=== PATIENT | female | born 1930 | race African-American/Black ===

== ENCOUNTER 2017-11-11 16:01 | Emergency (ER) | payer MEDICAID, OTHER ==
[~2017-11-11] VITALS: Ht 165.1 cm; Wt 81.6 kg
[~2017-11-11 16:01] MED LIST: ACETAMINOPHEN650 M2 ORAL; AMLODIPINE BESY10 MG PO; APRESOLINE50 MG PO; BRIMONIDINE TART5 ML RIGHT EYE; CATAPRES-TTS 21 EACH TD; HUMULIN 70100 UNIT/2 SUBQ; ISOSORBIDE MONO60 M1 PO; LUMIGAN2.5 ML BOTH EYES; PRAVASTATIN SOD80 MG PO; TRUSOPT10 ML LEFT EYE
[2017-11-11 16:13] VITALS: BP 172/80
--- NOTE | 2017-11-11 16:40 | Emergency Room Report ---
History of Present Illness General Chief Complaint: Back Pain-No Injury Source: Patient Present Illness HPI 87-year-old female presents with right lower back pain radiating to front of abdomen, asoc wiht with intermittent numbness and pain to right lower leg since last 2-3 days. Atraumatic. Denies chest pain, shortness of breath, headache, dizziness, change in vision Also endorses "my belly is ray lately." The patient is status post distant appendectomy States she saw a investigator cash shortage last week who told her "I have a spot in the kidney." However patient not sure if he may kidney stone. Patient endorses recent visit to [facility] where "take a lot of tests". However patient does not have any that information right now. denies known history of aortic dissection, abdominal aortic aneurysm Allergies: Coded Allergies: HYDROMORPHONE HCL (Unverified Allergy, Severe, Anaphylaxis, 03/16/13) Mushroom (Unverified Allergy, Severe, Anaphylaxis, 03/16/13) PENICILLINS (Unverified Allergy, Severe, Anaphylaxis, 03/16/13) AMOXICILLIN (Verified Allergy, Mild, 04/28/10) CODEINE (Verified Allergy, Mild, 04/28/10) MORPHINE (Verified Allergy, Mild, 04/28/10) Uncoded Allergies: SEAFOOD (Allergy, Severe, Anaphylaxis, 03/16/13) Patient History Past Medical History: see triage record, old chart reviewed, DM, HTN, CAD Past Surgical History: none Pertinent Family History: none Social History: Denies: smoking, alcohol use, drug use Now: No Immunizations: UTD Reviewed Nursing Documentation: PMH: Agreed, PSxH: Agreed Nursing Documentation-PM Hx Cardiac Problems: Yes - pacemaker Hx Hypertension: Yes Hx Pacemaker: Yes - left chest Hx Asthma: Yes Hx COPD: Yes Hx Diabetes: Yes Hx Cancer: No Hx Gastrointestinal Problems: No Hx Neurological Problems: Yes Hx Cerebrovascular Accident: Yes - 2010 Hx Transient Ischemic Attacks: Yes Hx Dementia: No Hx Alzheimer's Disease: No Hx Parkinson's Disease: No Hx Meningitis: No Hx Encephalitis: No Hx Seizures: No Hx Epilepsy: No Hx Multiple Sclerosis: No Hx Cerebral Palsy: No Hx Amyotrophic Lat Sclerosis: No Hx Guillian-[place] Syndrome: No Hx Paralysis: No Hx Peripheral Neuropathy: No Hx Spinal Cord Injury: No Hx Head Trauma: Yes - hematoma Hx Traumatic Brain Injury: No Hx Memory Loss: No Hx Concentration Difficulty: No Hx Speech Problem: No Hx Tremors: Yes Hx Vertigo: Yes Hx Dizziness: Yes Hx Syncope: Yes - fall Hx Headaches: Yes Hx Aphasia: No Hx Dysphasia: No Hx Numbness: No Hx Weakness: Yes Hx Fatigue: Yes Review of Systems All Other Systems: negative except mentioned in HPI Physical Exam Vital Signs Date Time Temp Pulse Resp B/P (MAP) Pulse Ox O2 Delivery O2 Flow Rate FiO2 11/11/17 16:03 98.1 82 16 186/82 98 Sp02 EP Interpretation: reviewed, normal General Appearance: normal inspection, well appearing, no apparent distress, alert, GCS 15, non-toxic, obese Head: normocephalic, atraumatic Eyes: bilateral eye PERRL, bilateral eye EOMI ENT: normal ENT inspection, hearing grossly normal, normal pharynx, no angioedema, normal voice, TMs + canals normal, uvula midline, moist mucus membranes Neck: normal inspection, full range of motion, supple, thyroid normal, no meningismus, no bony tend Respiratory: normal inspection, lungs clear, normal breath sounds, no rhonchi, no respiratory distress, no retraction, no accessory muscle use, no wheezing, speaking full sentences Cardiovascular #1: regular rate, rhythm, no edema, no JVD, normal capillary refill Gastrointestinal: normal inspection, normal bowel sounds, non tender, soft, no mass, no peritonitis, non-distended, no guarding, no hernia, no pulsatile mass Genitourinary: no CVA tenderness Musculoskeletal: normal inspection, back normal, normal range of motion, no calf tenderness, pelvis stable, Carlin's Sign negative, other - Moderate tenderness palpation to right paravertebral area of back/ Negative straight leg raise bilaterally. 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, motor strength/tone normal, cerebellar normal, normal gait, speech normal Psychiatric: normal inspection, judgement/insight normal, mood/affect normal, no suicidal/homicidal ideation, no delusions Skin: normal inspection, normal color, no rash Lymphatic: normal inspection, no adenopathy Medical Decision Making Diagnostic Impression: Primary Impression: Back pain Qualified Codes: M54.5 - Low back pain ER Course [id number] with back pain radiating to abdomen with parathesias down leg VSS, Afebrile Given vasculopathic history , "abdomen fullness", concern for AAA or dissection CT - No acute findings - dissection nor AAA - or other to explain symptoms - spot on kidney referenced by patient like cyst seen on CT Labs unremarkable for acute process either No leuks. H&H stable. No metabolic abnormalities Feels better with tylenol Patient reassured was given copy of CT, labs Has PMD followuup in 2 weeks ER course: Patient has remained stable during ED stay. Disposition: Patient is to be discharged to home. Patient is instructed to follow up with their primary care doctor within 5 days. Strict return precautions discussed with patient such as fever, chills, worsening/severe pain, nausea, vomiting, which may indicate severe illness. Patient verbalizes understanding and agrees with plan. Please note that this Emergency Department Report was dictated using Lingv[employer] controller technology software, occasionally this can lead to erroneous entry secondary to interpretation by the dictation equipment EKG Diagnostic Results Rate: other - atrial paced Rhythm: other - atrial paced ST Segments: no acute changes ASA given to the pt in ED: No Rhythm Strip Diag. Results EP Interpretation: yes Rate: 70 Rhythm: NSR, no PVC's, no ectopy Last Vital Signs Date Time Temp Pulse Resp B/P (MAP) Pulse Ox O2 Delivery O2 Flow Rate FiO2 11/11/17 16:03 98.1 82 16 186/82 98 Status: improved Disposition: HOME, SELF-CARE LOLA PARDO M.D. Nov 11, 2017 16:40
[2017-11-11 17:40] VITALS: BP 159/64
[2017-11-11 18:00] LABS: BASOPHILS % (AUTO) 1.3 % (0.0-2.0); EOSINOPHILS % (AUTO) 3.4 % (0.0-3.0); HEMATOCRIT 37.9 % (37.0-47.0); HEMOGLOBIN 12.6 G/DL (12.0-16.0); LYMPHOCYTES % (AUTO) 15.3 % (20.0-45.0); MEAN CORPUSCULAR VOLUME 88 FL (80-99); NEUTROPHILS % (AUTO) 71.9 % (45.0-75.0); PLATELET COUNT 261 K/UL (150-450); RED BLOOD COUNT 4.31 M/UL (4.20-5.40)
[2017-11-11 18:15] LABS: ANION GAP 11 mmol/L (5-15); BLOOD UREA NITROGEN 26 mg/dL (7-18); CALCIUM 9.5 MG/DL (8.5-10.1); CARBON DIOXIDE 25 MMOL/L (21-32); CHLORIDE 103 MMOL/L (98-107); CREATININE 1.8 MG/DL (0.55-1.30); POTASSIUM 3.9 MMOL/L (3.5-5.1); SODIUM 139 MMOL/L (136-145)
[2017-11-11 18:29] LABS: ALANINE AMINOTRANSFERASE 12 U/L (12-78); ALBUMIN/GLOBULIN RATIO 0.9 (1.0-2.7); ALKALINE PHOSPHATASE 51 U/L (46-116); ASPARTATE AMINO TRANSFERASE 16 U/L (15-37); BILIRUBIN,TOTAL 0.4 MG/DL (0.2-1.0); CKMB < 0.5 NG/ML (0.0-3.6); CREATINE KINASE 38 U/L (26-308)
[2017-11-11] MEDS ORDERED: Midazolam 2mg/2ml Inj IVP ONE (19:15)
[2017-11-11 21:47] VITALS: BP 159/64
--- NOTE | 2017-11-12 17:56 | Cardiology Report ---
APPROVED REPORT EKG Measurement Heart [id number] Atrial pacing Abnormal ECG
--- NOTE | 2017-11-12 18:15 | Diagnostic Imaging Report ---
Indication: Back pain Technique: CT of the chest, abdomen and pelvis was obtained utilizing automated exposure control without intravenous or oral contrast. Axial, sagittal and coronal reformats.. CT dose: Total DLP 1533 mGycm; CTDI vol 23.6 mGy Comparison: None Findings: CT CHEST: There is a left-sided dual lead pacemaker with lead tips in the right atrium and ventricle. Heart size within upper limits for normal. No pericardial effusion. There are aortic valvular and coronary arterial calcifications. There is no pathologically enlarged hilar or mediastinal adenopathy. Imaged portions of the thyroid are grossly unremarkable. Thoracic aorta is mildly calcified but appears normal in caliber. Dependent atelectatic changes are noted bilaterally. There is no focal airspace consolidation, pleural effusion or pneumothorax. There is a 4 mm nodule within the left lower lobe (series 4 image #78). There are multilevel degenerative changes of the thoracic spine. No acute osseous abnormality is seen. Coarse calcification noted in the left breast. CT ABDOMEN/PELVIS: Patient is status post cholecystectomy. There is no appreciable biliary ductal dilatation. Noncontrast evaluation of the liver and spleen are grossly unremarkable. There is slight thickening of the bilateral adrenal glands without discrete nodule.. There is fatty atrophy of the pancreas, likely age related. Kidneys are slightly atrophic. There is a 2 cm simple cyst in the lower pole of the left kidney. No urinary tract stones or hydronephrosis bilaterally. Bladder is unremarkable. Patient is status post hysterectomy. There is a tiny fat-containing umbilical hernia. There is no free intraperitoneal air. No evidence of bowel obstruction. There is diverticulosis without evidence of acute diverticulitis. No focal perienteric inflammatory changes appreciated. Abdominal aorta is moderately calcified but normal in caliber. Iliac arteries are normal in caliber. There is no bulky lymphadenopathy. There are multilevel degenerative changes of the spine. There is minimal anterolisthesis of L4 on L5 thought to be degenerative in etiology. No acute osseous abnormality is seen. IMPRESSION: Limited evaluation without intravenous and oral contrast. Within these limitations the following observations are made: * Mild to moderate atherosclerotic disease of a normal caliber aorta. Please note that lack of IV contrast precludes evaluation for acute aortic pathology such as aortic dissection. * Diverticulosis without evidence of acute diverticulitis. * Coronary artery disease. * Status post cholecystectomy and hysterectomy. * 4 mm left lower lobe lung nodule. No routine imaging follow-up recommended per 2017 Fleischner Society recommendations. * Multilevel degenerative change of the spine. Additional findings as above. This corresponds with the statrad preliminary report. The CT scanner at [facility] is accredited by the [employer] and the scans are performed using protocols designed to limit radiation exposure to as low as reasonably achievable to attain images of sufficient resolution adequate for diagnostic evaluation.
== END 2017-11-12 00:17 | disposition home or self-care (01) ==
LOC: EDBD 16:01 → EDUNIT# 16:01 → EMR 17:52
DX: M54.5 Low back pain (principal); J44.9 Chronic obstructive pulmonary disease, unspecified; I10 Essential (primary) hypertension; E11.9 Type 2 diabetes mellitus without complications; Z86.73 Personal history of transient ischemic attack (TIA), and cerebral infarction without residual deficits; Z95.0 Presence of cardiac pacemaker; Z88.0 Allergy status to penicillin; Z88.5 Allergy status to narcotic agent; Z91.013 Allergy to seafood; Z91.018 Allergy to other foods
CPT/HCPCS: 36415; 71275; 74174; 80053; 80307; 82550; 82553; 84484; 85025; 93005; 96374; 99284; J2250; Q9967

== ENCOUNTER 2018-03-27 17:04 | Emergency (ER) | payer OTHER ==
[~2018-03-27] VITALS: Ht 157.5 cm; Wt 99.8 kg
[2018-03-27] MEDS ORDERED: MONTELUKAST SOD10 MG ORAL (17:13)
[2018-03-27] MEDS ORDERED: BIMATOPROST2.5 ML OP (17:20)
[2018-03-27] MEDS ORDERED: ALBUTEROL2.5 MG/3 M INH (17:20)
[2018-03-27] MEDS ORDERED: ASPIR 8181 MG ORAL (17:20)
[2018-03-27] MEDS ORDERED: IRBESARTAN-HCT1 EAC2 PO (17:20)
[2018-03-27] MEDS ORDERED: HUMALOG MI100 UNIT/6 SQ ×2 (17:20)
[2018-03-27 17:25] VITALS: BP 136/72
--- NOTE | 2018-03-27 17:55 | Emergency Room Report ---
History of Present Illness General Chief Complaint: Skin Rash/Abscess Source: Patient Present Illness HPI Patient present with complaints of diffuse rash Reports that the rash started several days ago however now has become more tender and painful Itching Patient has multiple allergies however does not recall being in contact with anything that she was allergic to She reports that her Singulair was changed last week to a generic form Otherwise denies any change medications Denies any chest pain or short of breath denies any nausea vomiting The rash is diffuse involving the upper chest back and lower extremities Allergies: Coded Allergies: HYDROMORPHONE HCL (Unverified Allergy, Severe, Anaphylaxis, 03/16/13) Mushroom (Unverified Allergy, Severe, Anaphylaxis, 03/16/13) PENICILLINS (Unverified Allergy, Severe, Anaphylaxis, 03/16/13) AMOXICILLIN (Verified Allergy, Mild, 04/28/10) CODEINE (Verified Allergy, Mild, 04/28/10) MORPHINE (Verified Allergy, Mild, 04/28/10) Uncoded Allergies: SEAFOOD (Allergy, Severe, Anaphylaxis, 03/16/13) Patient History Past Medical History: see triage record Pertinent Family History: none Reviewed Nursing Documentation: PMH: Agreed; PSxH: Agreed Nursing Documentation-PMH Hx Cardiac Problems: Yes - pacemaker Hx Hypertension: Yes Hx Pacemaker: Yes - left chest Hx Asthma: Yes Hx COPD: Yes Hx Diabetes: Yes Hx Cancer: No Hx Gastrointestinal Problems: No Hx Neurological Problems: Yes Hx Cerebrovascular Accident: Yes - 2010 Hx Transient Ischemic Attacks: Yes Hx Dementia: No Hx Alzheimer's Disease: No Hx Parkinson's Disease: No Hx Meningitis: No Hx Encephalitis: No Hx Seizures: No Hx Epilepsy: No Hx Multiple Sclerosis: No Hx Cerebral Palsy: No Hx Amyotrophic Lat Sclerosis: No Hx Guillian-[place] Syndrome: No Hx Paralysis: No Hx Peripheral Neuropathy: No Hx Spinal Cord Injury: No Hx Head Trauma: Yes - hematoma Hx Traumatic Brain Injury: No Hx Memory Loss: No Hx Concentration Difficulty: No Hx Speech Problem: No Hx Tremors: Yes Hx Vertigo: Yes Hx Dizziness: Yes Hx Syncope: Yes - fall Hx Headaches: Yes Hx Aphasia: No Hx Dysphasia: No Hx Numbness: No Hx Weakness: Yes Hx Fatigue: Yes Review of Systems All Other Systems: negative except mentioned in HPI Physical Exam Vital Signs Date Time Temp Pulse Resp B/P (MAP) Pulse Ox O2 Delivery O2 Flow Rate FiO2 03/27/18 17:08 98.6 85 19 148/70 95 Room Air 98.6 Sp02 EP Interpretation: reviewed, normal General Appearance: well appearing, no apparent distress Head: normocephalic, atraumatic Eyes: bilateral eye PERRL, bilateral eye EOMI ENT: hearing grossly normal, normal pharynx, TMs + canals normal, uvula midline Neck: full range of motion, supple, no meningismus, no bony tend Respiratory: lungs clear, normal breath sounds, no rhonchi, no respiratory distress, no retraction, no accessory muscle use Cardiovascular #1: normal peripheral pulses, regular rate, rhythm, no edema, no gallop, no JVD, no murmur Gastrointestinal: normal bowel sounds, non tender, soft, no mass, no organomegaly, non-distended, no guarding, no hernia, no pulsatile mass, no rebound Genitourinary: no CVA tenderness Musculoskeletal: normal inspection Neurologic: oriented x3, responsive, 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, motor strength/ tone normal, sensory intact Psychiatric: mood/affect normal Skin: other - Diffuse urticarial rash involving the upper torso lower extremity and upper extremity, no obvious blister formation, there is no dermatomal pattern no obvious petechiae, Lymphatic: normal inspection, no adenopathy Medical Decision Making Diagnostic Impression: Primary Impression: Rash and other nonspecific skin eruption ER Course Given the patient's presentation clinical history and exam patient does appear to have extensive allergic reaction Patient was treated symptomatically on repeat evaluation feels improved also clinical evaluation shows improved rash given the extent of the rash given the Benadryl this required and the patient's age given the lack of knowledge of the specific etiology of the rash I recommended inpatient observation overnight However patient does not want to stay in the hospital Her daughter is here as well and reports that she will return with any concerns or changes Labs Test 03/27/18 18:25 03/27/18 19:40 White Blood Count 9.1 K/UL (4.8-10.8) Red Blood Count 4.10 M/UL (4.20-5.40) Hemoglobin 11.7 G/DL (12.0-16.0) Hematocrit 35.6 % (37.0-47.0) Mean Corpuscular Volume 87 FL (80-99) Mean Corpuscular Hemoglobin 28.5 PG (27.0-31.0) Mean Corpuscular Hemoglobin Concent 32.8 G/DL (32.0-36.0) Red Cell Distribution Width 12.9 % (11.6-14.8) Platelet Count 165 K/UL (150-450) Mean Platelet Volume 7.5 FL (6.5-10.1) Neutrophils (%) (Auto) 72.2 % (45.0-75.0) Lymphocytes (%) (Auto) 15.9 % (20.0-45.0) Monocytes (%) (Auto) 3.4 % (1.0-10.0) Eosinophils (%) (Auto) 7.6 % (0.0-3.0) Basophils (%) (Auto) 0.9 % (0.0-2.0) Sodium Level 139 MMOL/L (136-145) Potassium Level 3.9 MMOL/L (3.5-5.1) Chloride Level 103 MMOL/L (98-107) Carbon Dioxide Level 23 MMOL/L (21-32) Anion Gap 13 mmol/L (5-15) Blood Urea Nitrogen 34 mg/dL (7-18) Creatinine 2.0 MG/DL (0.55-1.30) Estimat Glomerular Filtration Rate mL/min (>60) Glucose Level 117 MG/DL (74-106) Calcium Level 8.9 MG/DL (8.5-10.1) Total Bilirubin 0.4 MG/DL (0.2-1.0) Aspartate Amino Transf (AST/SGOT) 17 U/L (15-37) Alanine Aminotransferase (ALT/SGPT) 18 U/L (12-78) Alkaline Phosphatase 44 U/L (46-116) Total Creatine Kinase 46 U/L (26-308) Creatine Kinase MB 0.5 NG/ML (0.0-3.6) Creatine Kinase MB Relative Index 1.0 Troponin I 0.051 ng/mL (0.000-0.056) Total Protein 7.7 G/DL (6.4-8.2) Albumin 3.6 G/DL (3.4-5.0) Globulin 4.1 g/dL Albumin/Globulin Ratio 0.9 (1.0-2.7) Prothrombin Time 9.4 SEC (9.30-11.50) Prothromb Time International Ratio 0.9 (0.9-1.1) Activated Partial Thromboplast Time 19 SEC (23-33) Rhythm Strip Diag. Results EP Interpretation: yes Rate: 66 Rhythm: NSR, no PVC's, no ectopy Chest X-Ray Diagnostic Results Chest X-Ray Diagnostic Results : Chest X-Ray Ordered: Yes # of Views/Limited/Complete: 1 View Indication: Chest Pain EP Interpretation: Yes Interpretation: no consolidation, no effusion, no pneumothorax Impression: No acute disease Electronically Signed by: Gerald Dominguez DO Last Vital Signs Date Time Temp Pulse Resp B/P (MAP) Pulse Ox O2 Delivery O2 Flow Rate FiO2 03/27/18 17:25 98.6 76 19 136/72 97 Room Air 98.6 Status: improved Disposition: HOME, SELF-CARE Condition: Improved Scripts Famotidine (PEPCID AC) 20 Mg Tablet 20 MG PO DAILY, #20 TAB Prov: Gerald Dominguez DO 03/27/18 Diphenhydramine HCl (Benadryl) 25 Mg Capsule 25 MG PO Q8HR, #30 CAP Prov: Gerald Dominguez DO 03/27/18 Prednisone* (PREDNISONE*) 20 Mg Tablet 20 MG ORAL BID, #10 TAB Prov: Gerald Dominguez DO 03/27/18 Referrals: [facility],REFERRING (PCP) Additional Instructions: Patient is provided with the discharge instructions notified to follow up with primary doctor in the next 2-3 days otherwise return to the er with any worsening symptoms. Please note that this report is being documented using DRAGON technology. This can lead to erroneous entry secondary to incorrect interpretation by the dictating instrument. Gerald Dominguez DO Mar 27, 2018 17:55
[2018-03-27] MEDS ORDERED: DiphenhydrAMINE 50mg/ml Inj IVP ONE ×2 (18:00→19:45)
[2018-03-27] MEDS ORDERED: Solu-MEDROL 125mg Inj IVP ONE (18:00)
[2018-03-27 18:54] LABS: BASOPHILS % (AUTO) 0.9 % (0.0-2.0); EOSINOPHILS % (AUTO) 7.6 % (0.0-3.0); HEMATOCRIT 35.6 % (37.0-47.0); HEMOGLOBIN 11.7 G/DL (12.0-16.0); LYMPHOCYTES % (AUTO) 15.9 % (20.0-45.0); MEAN CORPUSCULAR VOLUME 87 FL (80-99); MONOCYTES % (AUTO) 3.4 % (1.0-10.0); NEUTROPHILS % (AUTO) 72.2 % (45.0-75.0); PLATELET COUNT 165 K/UL (150-450); RED CELL DISTRIBUTION WIDTH 12.9 % (11.6-14.8); WHITE BLOOD COUNT 9.1 K/UL (4.8-10.8)
--- NOTE | 2018-03-27 18:56 | Diagnostic Imaging Report ---
EXAM: XR Chest, 1 View CLINICAL HISTORY: Chest pain TECHNIQUE: Frontal view of the chest. COMPARISON: Chest x-ray dated 03/16/16. FINDINGS: Lungs: Mild pulmonary vascular congestion. Subsegmental atelectasis in the left lung base. The lungs otherwise appear clear. Pleural space: Unremarkable. No pneumothorax. Heart: Unremarkable. No cardiomegaly. Mediastinum: Unremarkable. Bones/joints: Unremarkable. Tubes, lines and devices: Left-sided cardiac pacer with lead tips in the right atrium and right ventricle. EKG leads overlie the thorax. IMPRESSION: 1. Mild pulmonary vascular congestion. 2. Subsegmental atelectasis in the left lung base.
[2018-03-27 19:04] LABS: ANION GAP 13 mmol/L (5-15); BLOOD UREA NITROGEN 34 mg/dL (7-18); CALCIUM 8.9 MG/DL (8.5-10.1); CARBON DIOXIDE 23 MMOL/L (21-32); CHLORIDE 103 MMOL/L (98-107); POTASSIUM 3.9 MMOL/L (3.5-5.1); SODIUM 139 MMOL/L (136-145)
[2018-03-27 19:17] LABS: ALANINE AMINOTRANSFERASE 18 U/L (12-78); ALBUMIN 3.6 G/DL (3.4-5.0); ALBUMIN/GLOBULIN RATIO 0.9 (1.0-2.7); ALKALINE PHOSPHATASE 44 U/L (46-116); ASPARTATE AMINO TRANSFERASE 17 U/L (15-37); BILIRUBIN,TOTAL 0.4 MG/DL (0.2-1.0); CKMB 0.5 NG/ML (0.0-3.6); CREATINE KINASE 46 U/L (26-308)
[2018-03-27 19:25] VITALS: BP 140/72
[2018-03-27] MEDS ORDERED: PREDNISONE20 MG ORAL (19:52)
[2018-03-27] MEDS ORDERED: PEPCID AC20 M2 PO (19:52)
[2018-03-27] MEDS ORDERED: BENADRYL25 M3 PO (19:52)
[2018-03-27 19:57] LABS: INR 0.9 (0.9-1.1)
[2018-03-27 20:19] VITALS: BP 154/54
[2018-03-27 20:21] VITALS: BP 154/54
--- NOTE | 2018-03-31 15:25 | Cardiology Report ---
APPROVED REPORT EKG Measurement Heart [id number] Abnormal ECG Atrial Pacemaker
== END 2018-03-27 20:33 | disposition home or self-care (01) ==
LOC: EMR 17:23 → CANBEDREQ 19:54 → EMR 20:33
DX: R21 Rash and other nonspecific skin eruption (principal); Z88.0 Allergy status to penicillin; Z88.5 Allergy status to narcotic agent; Z91.013 Allergy to seafood; I10 Essential (primary) hypertension; Z95.0 Presence of cardiac pacemaker; J44.9 Chronic obstructive pulmonary disease, unspecified; Z86.73 Personal history of transient ischemic attack (TIA), and cerebral infarction without residual deficits
CPT/HCPCS: 36415; 71045; 80053; 82550; 82553; 84484; 85025; 85610; 85730; 87040; 93005; 96374; 96375; 99284; J1200; J2930; S0028

== ENCOUNTER 2018-04-08 11:36 | Emergency (ER) | payer MEDICARE ==
[~2018-04-08] VITALS: Ht 157.5 cm; Wt 99.8 kg
[~2018-04-08 11:36] MED LIST changes: +ALBUTEROL2.5 MG/3 M INH; +ASPIR 8181 MG ORAL; +BENADRYL25 M3 PO; +BIMATOPROST2.5 ML OP; +HUMALOG MI100 UNIT/6 SQ; +IRBESARTAN-HCT1 EAC2 PO; +MONTELUKAST SOD10 MG ORAL; +PEPCID AC20 M2 PO; +PREDNISONE20 MG ORAL
[2018-04-08 12:00] VITALS: BP 159/63
[2018-04-08] MEDS ORDERED: Solu-MEDROL 125mg Inj IVP ONE (12:30)
--- NOTE | 2018-04-08 12:34 | Emergency Room Report ---
History of Present Illness General Chief Complaint: Dyspnea/Respdistress Source: Patient Present Illness HPI This patient referred from PMD Dr. Kyle seen today. C/o three days gradual sob, cough, malaise. No productive cough, no fever, no travel, no leg pain/swelling, no recent surgery, hospitalizations, procedures. PMH: CHF, CKD, diabetes, hx. a fib, hx. TIA, HTN, Allergies: Coded Allergies: HYDROMORPHONE HCL (Unverified Allergy, Severe, Anaphylaxis, 03/16/13) Mushroom (Unverified Allergy, Severe, Anaphylaxis, 03/16/13) PENICILLINS (Unverified Allergy, Severe, Anaphylaxis, 03/16/13) AMOXICILLIN (Verified Allergy, Mild, 04/28/10) CODEINE (Verified Allergy, Mild, 04/28/10) MORPHINE (Verified Allergy, Mild, 04/28/10) Uncoded Allergies: SEAFOOD (Allergy, Severe, Anaphylaxis, 03/16/13) Patient History Last Menstrual Period: NA Nursing Documentation-PMH Past Medical History: No History, Except For Hx Cardiac Problems: Yes - pacemaker Hx Hypertension: Yes Hx Pacemaker: Yes - left chest Hx Asthma: Yes Hx COPD: Yes Hx Diabetes: Yes Hx Cancer: No Hx Gastrointestinal Problems: No Hx Neurological Problems: Yes Hx Cerebrovascular Accident: Yes - 2010 Hx Transient Ischemic Attacks: Yes Hx Dementia: No Hx Alzheimer's Disease: No Hx Parkinson's Disease: No Hx Meningitis: No Hx Encephalitis: No Hx Seizures: No Hx Epilepsy: No Hx Multiple Sclerosis: No Hx Cerebral Palsy: No Hx Amyotrophic Lat Sclerosis: No Hx Guillian-[place] Syndrome: No Hx Paralysis: No Hx Peripheral Neuropathy: No Hx Spinal Cord Injury: No Hx Head Trauma: Yes - hematoma Hx Traumatic Brain Injury: No Hx Memory Loss: No Hx Concentration Difficulty: No Hx Speech Problem: No Hx Tremors: Yes Hx Vertigo: Yes Hx Dizziness: Yes Hx Syncope: Yes - fall Hx Headaches: Yes Hx Aphasia: No Hx Dysphasia: No Hx Numbness: No Hx Weakness: Yes Hx Fatigue: Yes Review of Systems Constitutional: Reports: no symptoms Eye: Reports: no symptoms ENT: Reports: no symptoms Respiratory: Reports: see HPI Cardiovascular: Reports: see HPI; Denies: no symptoms Gastrointestinal: Reports: no symptoms Genitourinary: Reports: no symptoms Musculoskeletal: Reports: no symptoms Skin: Reports: no symptoms Psychiatric: Reports: no symptoms Neurological: Reports: no symptoms Endocrine: Reports: no symptoms Hematologic/Lymphatic: Reports: no symptoms Allergic: Reports: no symptoms All Other Systems: negative except mentioned in HPI Physical Exam Vital Signs Date Time Temp Pulse Resp B/P (MAP) Pulse Ox O2 Delivery O2 Flow Rate FiO2 04/08/18 11:42 98.8 85 16 162/77 94 Room Air 98.8 Sp02 EP Interpretation: reviewed, abnormal General Appearance: alert, GCS 15, non-toxic, mild distress Head: normocephalic, atraumatic Eyes: bilateral eye normal inspection, bilateral eye PERRL, bilateral eye EOMI ENT: normal ENT inspection, hearing grossly normal, normal pharynx, no angioedema, normal voice, moist mucus membranes Neck: normal inspection, full range of motion, supple, no meningismus, no bony tend Respiratory: normal inspection, no rhonchi, no respiratory distress, no retraction, no accessory muscle use, no wheezing, decreased breath sounds, wheezing, expiration Cardiovascular #1: normal inspection, regular rate, rhythm, no edema Gastrointestinal: normal inspection, normal bowel sounds, non tender, soft, no mass, non-distended Musculoskeletal: gait/station normal, normal range of motion Neurologic: normal inspection, alert, oriented x3, responsive, motor strength/ tone normal Psychiatric: normal inspection, judgement/insight normal, memory normal Suicide Risk Assessment: Suicidal Ideation: No Had intent to initiate attempt: No Pt's plan for suicide attempt: No Has means to complete attempt: No Skin: normal inspection, normal color, no rash, warm/dry Medical Decision Making Reaction to Intervention: Improved Diagnostic Impression: Primary Impression: Dyspnea Additional Impressions: CHF (congestive heart failure) Morbid obesity Pacemaker Hypertension Diabetes mellitus EKG Diagnostic Results EKG Time: 12:49 Rate: normal Rhythm: other ST Segments: no acute changes Other Impression paced rhythm and supraventricular beats, 79, no signs acute ischemia ASA given to the pt in ED: No Chest X-Ray Diagnostic Results Chest X-Ray Diagnostic Results : Chest X-Ray Ordered: Yes # of Views/Limited/Complete: 1 View Indication: Shortness of Breath EP Interpretation: Yes Interpretation: no consolidation, no effusion, no pneumothorax, no acute cardiopulmonary disease Impression: No acute disease Last Vital Signs Date Time Temp Pulse Resp B/P (MAP) Pulse Ox O2 Delivery O2 Flow Rate FiO2 04/08/18 12:00 98.8 80 27 159/63 95 Room Air 98.8 Condition: Serious Gage Phan M.D. Apr 08, 2018 12:34
[2018-04-08] MEDS ORDERED: Montelukast 10mg tablet ORAL ONE (12:45)
--- NOTE | 2018-04-08 13:07 | Diagnostic Imaging Report ---
Indication: Chest pain Technique: XRAY Chest 1v Comparison: 03/27/2018 Findings: Stable cardiomegaly. Pacemaker again noted. Interval apparent change in the the configuration may be related to differences in positioning however correlation with exam/EKG is recommended to assure appropriate pacemaker functioning. There is mild pulmonary vascular congestion. No definite focal consolidation, pleural effusion or pneumothorax. No acute osseous abnormality. Cholecystectomy clips noted in the right upper quadrant. IMPRESSION: Cardiomegaly and mild central pulmonary vascular congestion. No focal consolidation, pleural effusion or pneumothorax. Left-sided pacemaker with apparent interval change in configuration/positioning of the right ventricular lead, possibly related to changes in patient positioning. Correlate clinically to assure appropriate pacemaker functioning.
[2018-04-08 13:21] LABS: BASOPHILS % (AUTO) 1.3 % (0.0-2.0); EOSINOPHILS % (AUTO) 5.3 % (0.0-3.0); HEMATOCRIT 33.3 % (37.0-47.0); HEMOGLOBIN 10.7 G/DL (12.0-16.0); LYMPHOCYTES % (AUTO) 17.1 % (20.0-45.0); MEAN CORPUSCULAR VOLUME 88 FL (80-99); MONOCYTES % (AUTO) 9.6 % (1.0-10.0); NEUTROPHILS % (AUTO) 66.7 % (45.0-75.0); PLATELET COUNT 191 K/UL (150-450); RED BLOOD COUNT 3.76 M/UL (4.20-5.40); WHITE BLOOD COUNT 9.4 K/UL (4.8-10.8)
[2018-04-08 13:22] LABS: ANION GAP 16 mmol/L (5-15); BLOOD UREA NITROGEN 31 mg/dL (7-18); CALCIUM 8.8 MG/DL (8.5-10.1); CARBON DIOXIDE 17 MMOL/L (21-32); CHLORIDE 102 MMOL/L (98-107); CREATININE 2.2 MG/DL (0.55-1.30); POTASSIUM 4.4 MMOL/L (3.5-5.1); SODIUM 135 MMOL/L (136-145)
[2018-04-08] MEDS ORDERED: LUMIGAN2.5 ML BOTH EYES (13:22)
[2018-04-08] MEDS ORDERED: MEDROL DOSEPAK4 MG ORAL (13:22)
[2018-04-08] MEDS ORDERED: SOLARAZE100 GM TP (13:22)
[2018-04-08] MEDS ORDERED: ZANTAC150 MG ORAL (13:22)
[2018-04-08 13:34] LABS: ALANINE AMINOTRANSFERASE 17 U/L (12-78); ALBUMIN 3.3 G/DL (3.4-5.0); ALBUMIN/GLOBULIN RATIO 0.7 (1.0-2.7); ALKALINE PHOSPHATASE 37 U/L (46-116); ASPARTATE AMINO TRANSFERASE 38 U/L (15-37); BILIRUBIN,TOTAL 0.5 MG/DL (0.2-1.0)
[2018-04-08 14:15] VITALS: BP 114/84
[2018-04-08 14:23] LABS: APPEARANCE,URINE SLIGHTLY CLOUDY; BILIRUBIN, URINE NEGATIVE (NEGATIVE); GLUCOSE, URINE (UA) NEGATIVE (NEGATIVE); KETONES,URINE NEGATIVE (NEGATIVE); LEUKOCYTE ESTERASE ,URINE 3+ (NEGATIVE); NITRITE,URINE NEGATIVE (NEGATIVE); PH,URINE 5 (4.5-8.0); PROTEIN,URINE 1+ (NEGATIVE); UROBILINOGEN,URINE NORMAL MG/DL (0.0-1.0)
[2018-04-08 14:28] LABS: COLOR,URINE YELLOW
[2018-04-08] MEDS ORDERED: cefTRIAXone 1 GM in NS 55 ML IVPB ONE (15:30)
[2018-04-08 16:16] VITALS: BP 134/86
[2018-04-08] MEDS ORDERED: Albuterol ud Inhalation ONE ×3 (16:23→16:55)
[2018-04-08] MEDS ORDERED: Ipratropium 0.02% Inh Soln 2.5ml UD ONE ×3 (16:23→16:55)
[2018-04-08] MEDS: Albuterol ud Inhalation HHN SCH ×3 (16:27→16:59)
[2018-04-08] MEDS: Ipratropium 0.02% Inh Soln 2.5ml UD HHN SCH ×3 (16:27→16:59)
[2018-04-08 17:21] VITALS: BP 134/86
--- NOTE | 2018-04-09 14:21 | Cardiology Report ---
APPROVED REPORT EKG Measurement Heart [id number] Sinus rhythm with 1st degree AV block with premature atrial complexes Nonspecific T wave abnormality Abnormal ECG
== END 2018-04-08 17:15 | disposition short-term general hospital (02) ==
LOC: EMR 12:30
DX: R06.00 Dyspnea, unspecified (principal); I11.0 Hypertensive heart disease with heart failure; I50.9 Heart failure, unspecified; E66.01 Morbid (severe) obesity due to excess calories; Z95.0 Presence of cardiac pacemaker; E11.9 Type 2 diabetes mellitus without complications; R53.81 Other malaise; J44.9 Chronic obstructive pulmonary disease, unspecified; Z86.73 Personal history of transient ischemic attack (TIA), and cerebral infarction without residual deficits; Z88.6 Allergy status to analgesic agent; Z88.0 Allergy status to penicillin; Z91.013 Allergy to seafood
CPT/HCPCS: 36415; 71045; 80053; 81003; 83605; 83880; 84484; 85025; 87040; 87086; 93005; 94640; 94664; 96365; 96375; 99284; J0696; J2930; 96360; 96374